=== PATIENT | male | born 1990 | race Caucasian/White ===

== ENCOUNTER 2016-05-09 09:16 | Emergency (ER) | payer OTHER ==
[2016-05-09] MEDS ORDERED: SUCRALFATE 1 GM/10 ML UDC PO STA (11:02)
[2016-05-09] MEDS ORDERED: FAMOTIDINE 20 MG TABLET PO STA (11:02)
[2016-05-09] MEDS ORDERED: FAMOTIDINE 20 MG TABLET ONE (11:06)
[2016-05-09] MEDS ORDERED: SUCRALFATE 1 GM/10 ML UDC ONE (11:06)
== END 2016-05-09 11:19 | disposition home or self-care (01) ==
DX: K92.2 Gastrointestinal hemorrhage, unspecified (principal); F17.200 Nicotine dependence, unspecified, uncomplicated
CPT/HCPCS: 36415; 85025; 99283; A9270